=== PATIENT | male | born 1970 | race Caucasian/White ===

== ENCOUNTER 2025-04-30 13:42 | Emergency (ER) | payer OTHER, SELFPAY ==
[2025-04-30 13:48] VITALS: BP 128/86
--- NOTE | 2025-04-30 15:08 | ED.SKININJ ---
HPI-Injury
General
Chief Complaint: Skin Surface Trauma
Source: patient
Exam Limitations: none
Time Seen by Provider: 04/30/25 15:07
Nursing documentation reviewed up to this point in time: agreed with
History of Present Illness-Injury
Initial Injury comments:
54-year-old male presents with a skin avulsion of the right middle finger tuft. He got it caught in a crack in his garage door within the past 2 hours. He had a tetanus shot last year.
Past History
Past History
ED Past Medical History: Hypercholesterolemia
ED Past Surgical History: None
Social History
Tobacco: Non-smoker
Alcohol: Occasional
Personal:
Living: with family
Employment: Employed
Review of Systems
Review of Systems
Allergies reviewed?: Yes
All Other Systems: ROS reviewed and negative except as documented in HPI and ROS
Skin Exam
Avulsion
Right middle finger pad:
Type of avulsion injury: avulsion (5mm x 1 cm avulsion of skin of fingerpad)
Any active bleeding?: low grade venous oozing
Distal skin color and temperature: normal-warm & good color
Normal distal neurovascular exam: Yes
Phy Exam
Physical Exam
Physical Exam:
PHYSICAL EXAMINATION:
General: no apparent distress, not acutely ill
Neuro: alert and oriented.
Psychiatric: well kept. interactive and cooperative
Musculoskeletal: Moves with ease
Skin: Warm, pink.
Course
Vital Signs
Initial and Last Documented VS:
Initial Vital Signs
Temp Pulse Resp BP Pulse Ox
98.7 F 69 18 128/86 99
04/30/25 13:48 04/30/25 13:48 04/30/25 13:48 04/30/25 13:48 04/30/25 13:48
Last Documented Vital Signs
Temp Pulse Resp BP Pulse Ox
98.7 F 69 18 128/86 99
04/30/25 13:48 04/30/25 13:48 04/30/25 13:48 04/30/25 13:48 04/30/25 15:11
MDM/Problems Addressed
MDM/Problems Addressed:
54-year-old male presents with a skin avulsion of the right middle finger tuft. He got it caught in a crack in his garage door within the past 2 hours. He had a tetanus shot last year.
No bony tenderness, no indication for imaging
Slow ooze controlled with Gelfoam and Band-Aid dressing, aluminum fingertip splint applied for protection.
*Pulse Oximetry
SaO2: 99
Oxygen Mode of Delivery: Room air
Patient hypoxic: not evaluated
*Critical Care Note
Total Time (30-74mins, 75-104mins- exclusive of procedures): Not Applicable
ED Attending Note
-
Portions of this chart may have been created with voice recognition software.� Occasional wrong word or��sound alike� substitutions may have occurred due to the inherent limitations of voice recognition software.
Discharge Plan
Departure
Patient Disposition: Home (Routine Discharge)
Date of Disposition: 04/30/25
Time of Disposition: 15:15
Patient with high blood pressure during this ER visit?: No
Condition: Good
Discharge Problem:
Avulsion of skin of finger
Instructions: Wound care - ED (DC)
Referrals:
Brittany Cid DO [Family Provider, Family Practice] - As needed
Activity Restrictions/Additional Instructions:
As we discussed, leave the current dressing on until Thursday when you may remove it, wash the area with soap and water, apply antibiotic and Band-Aids. Use the aluminum fingertip splint as needed for protection. This area takes 2 to 3
weeks to heal.
Interventions
Interventions:
*Risk Screen - Suicide Last Done: 04/30/25 13:45
*General Assessment Last Done: 04/30/25 13:48
*Neglect/Abuse Screening Last Done: 04/30/25 13:48
Discharge Date and Time
Print Language: ITALIAN
[2025-04-30 15:26] VITALS: BP 132/75
== END 2025-04-30 15:27 | disposition home or self-care (01) ==
LOC: EMR 13:42
PROVIDERS: EMERGENCY PHYSICIAN Emergency Medicine; FAMILY PHYSICIAN Family Medicine
DX: S61.202A Unspecified open wound of right middle finger without damage to nail, initial encounter (principal); W23.1XXA Caught, crushed, jammed, or pinched between stationary objects, initial encounter; E78.00 Pure hypercholesterolemia, unspecified
CPT/HCPCS: 99282; 29130